=== PATIENT | female | born 1970 | race Caucasian/White ===

== ENCOUNTER 2016-11-19 21:03 | Emergency (ER) | payer MEDICAID ==
[~2016-11-19] VITALS: Ht 150.9 cm; Wt 93.0 kg
[2016-11-19 21:08] VITALS: Ht 150.9 cm; Wt 93.0 kg
--- NOTE | 2016-11-19 21:50 | ERA ---
ER Documentation Chief Complaint Date/Time DATE: 11/19/16 TIME: 21:49 Chief Complaint lt pelvic pain on and off started today,denies dysuria HPI The patient is a 46-year-old female, presenting to the ER because of left pelvic pain intermittently for 1 day, denies similar symptoms previously, denies fever, chills, neck pain, chest pain, dyspnea, abdominal pain, vomiting, dysuria, diarrhea. She does not smoke nor drink. LMP was about 12 years ago Past medical history: None Past surgical history: Cholecystectomy, one ROS All systems reviewed and are negative except as per history of present illness. Medications Home Meds No Active Prescriptions or Reported Meds Allergies Allergies: Coded Allergies: ranitidine (Unverified Adverse Reaction, Unknown, 11/19/16) Physical Exam Vitals Vital Signs Date Time Temp Pulse Resp B/P Pulse Ox O2 Delivery O2 Flow Rate FiO2 11/19/16 23:31 87 17 119/88 99 Room Air 11/19/16 21:08 98.5 90 18 130/63 96 Physical Exam Const: No acute distress. Head: Atraumatic. Eyes: Normal Conjunctiva. ENT: Normal External Ears, Nose and Mouth. Neck: Full range of motion. No meningismus. Resp: Clear to auscultation bilaterally. Cardio: Regular rate and rhythm. Abd: Soft, non distended, normal bowel sounds, non tender. Skin: No petechiae or rashes. Back: No midline or flank tenderness. Ext: No cyanosis, or edema. Neur: Awake and alert. No focal deficit Psych: Normal Mood and Affect. Result Diagram: 11/19/16215411/19/162154 Results 24 hrs Laboratory Tests Test 11/19/16 21:55 White Blood Count 12.910^3/ul Red Blood Count 4.3210^6/ul Hemoglobin 11.6g/dl Hematocrit 35.1% Mean Corpuscular Volume 81.3fl Mean Corpuscular Hemoglobin 26.9pg Mean Corpuscular Hemoglobin Concent 33.0g/dl Red Cell Distribution Width 14.2% Platelet Count 02916^3/UL Mean Platelet Volume 10.4fl Neutrophils % 62.9% Lymphocytes % 30.1% Monocytes % 4.7% Eosinophils % 1.6% Basophils % 0.3% Nucleated Red Blood Cells % 0.0/100WBC Neutrophils # 8.110^3/ul Lymphocytes # 3.910^3/ul Monocytes # 0.610^3/ul Eosinophils # 0.210^3/ul Basophils # 0.010^3/ul Nucleated Red Blood Cells # 0.010^3/ul Prothrombin Time 13.4Sec Prothrombin Time Ratio 1.0 INR International Normalized Ratio 1.02 Activated Partial Thromboplast Time 32.6Sec Urine Color LT. YELLOW Urine Clarity CLEAR Urine pH 5.5 Urine Specific [place] 1.025 Urine Ketones NEGATIVE Urine Nitrite NEGATIVE Urine Bilirubin NEGATIVE Urine Urobilinogen 0.2 E.U./dL Urine Leukocyte Esterase 1+ Urine Microscopic RBC NONE SEEN/HPF Urine Microscopic WBC 5-10/HPF Urine Squamous Epithelial Cells MODERATE Urine Bacteria FEW Urine Hemoglobin NEGATIVE Urine Glucose NEGATIVE% Urine Total Protein NEGATIVE Sodium Level 139mmol/L Potassium Level 4.0mmol/L Chloride Level 106mmol/L Carbon Dioxide Level 23mmol/L Anion Gap 14 Blood Urea Nitrogen 21mg/dl Creatinine 0.58mg/dl Glucose Level 114mg/dl Calcium Level 9.2mg/dl Current Medications Medications (Trade) Dose Ordered Sig/Violeta Route PRN Reason Start Time Stop Time Status Last Admin Dose Admin Morphine Sulfate (morphine) 2 mg ONCE STAT IV 11/19/16 21:56 11/19/16 22:00 DC 11/19/16 22:22 Ondansetron HCl (Zofran Inj) 4 mg ONCE STAT IV 11/19/16 21:56 11/19/16 22:00 DC 11/19/16 22:22 Trimethoprim/ Sulfamethoxazole (Bactrim (Ds)) 1 tab ONCE ONCE PO 11/20/16 01:00 11/20/16 01:01 DC Procedures/[place] [id number] Radiology Main Line: [phone] DIAGNOSTIC IMAGING REPORT Patient: MARTIN OTERO : 1970 Age: 46 Sex: F MR #: [id number] DOS: 11/19/16 2156 Ordering MD: CLIFF YEAGER MD Location: E/R Room/Bed: PROCEDURE: US Non-OB Pelvis. CLINICAL INDICATION: Pelvic pain, postmenopausal for 12 years. TECHNIQUE: Multiple sonographic images of the pelvis were obtained utilizing a transabdominal and endovaginal technique. The images were reviewed on a PACS workstation. COMPARISON: None. FINDINGS: The uterus is retroverted and measures 7.2 x 4.2 x 5.2 cm. The endometrium measures 4 mm in thickness. There are several cystic structures within the endocervical canal. The right ovary measures 4.2 x 2.7 x 1.8 cm. There is a 1.2 cm hemorrhagic right ovarian cyst. The left ovary measures 3.0 x 2.2 x 2.7 cm. There are simple cysts in both ovaries measuring up to 1.6 cm on the left. Blood flow is demonstrated to both ovaries. No adnexal masses are noted. There is no evidence of free fluid. IMPRESSION: 1. Several cystic structures within the endocervical canal, nonspecific. Correlation with Pap smear is recommended. This could be further evaluated with MRI or a sonohysterogram if clinically warranted. 2. 1.2 cm hemorrhagic right ovarian cyst. 3. Additional simple cysts in both ovaries, normal for age. RPTAT: HTAR .Braden aCno MD, MD Date Time Electronically viewed and signed by .Braden Cano MD, MD on 11/20/2016 00:23 .R/ CC: CLIFF YEAGER MD MEDICAL MAKING DECISION: The patient is a 46-year-old female, presenting with acute left pelvic pain of unclear etiology, acute cystitis, acute left hemorrhagic ovarian cyst. She was treated with morphine 2 mg IV for pain, Zofran 4 mg IV for nausea and Bactrim DS for acute cystitis with good response. The differential diagnoses considered include but are not limited to PID, ovarian cyst, endometriosis, fibroids, appendicitis, malignancy. Departure Diagnosis: Primary Impression: Acute pain in female pelvis Additional Impressions: UTI (urinary tract infection) Hemorrhagic ovarian cyst Anemia Condition: Good Comments She was discharged with Bactrim DS, Motrin I discussed the findings with the patient. I advised the patient to follow-up with insurance claim representative in about 1-2 days, sooner if needed and return if any concern. The patient's blood pressure was elevated (>120/80) but appears stable without evidence of hypertension emergency or urgency. The patient was counseled about the risks of hypertension and urged to pursue outpatient monitoring and therapy within a week with their primary care physician. CLIFF YEAGER MD Nov 19, 2016 21:50
[2016-11-19] MEDS ORDERED: morphine 4 MG/ML VIAL IV STA (21:56)
[2016-11-19] MEDS ORDERED: ONDANSETRON 4 MG INJ IV STA (21:56)
[2016-11-19 22:06] LABS: ADD SCAN DIFF NO
[2016-11-19 22:12] LABS: ADD UMIC YES; BASOPHILS % 0.3 % (0.0-2.0); EOSINOPHILS # 0.2 10^3/ul (0.0-0.5); EOSINOPHILS % 1.6 % (0.0-7.0); HEMATOCRIT 35.1 % (37.0-47.0); HEMOGLOBIN 11.6 g/dl (12.0-16.0); LYMPHOCYTES # 3.9 10^3/ul (0.8-2.9); LYMPHOCYTES % 30.1 % (15.0-51.0); MEAN CORPUSCULAR HEMOGLOBIN 26.9 pg (29.0-33.0); MEAN CORPUSCULAR VOLUME 81.3 fl (82.0-101.0); MEAN PLATELET VOLUME 10.4 fl (7.4-10.4); MONOCYTE # 0.6 10^3/ul (0.3-0.9); MONOCYTES % 4.7 % (0.0-11.0); NEUTROPHIL # 8.1 10^3/ul (1.6-7.5); NEUTROPHILS % 62.9 % (39.0-77.0); PLATELET COUNT 294 10^3/UL (140-415); RED BLOOD COUNT 4.32 10^6/ul (4.20-5.40); RED CELL DISTRIBUTION WIDTH 14.2 % (11.5-14.5); UR BILIRUBIN (Dip) NEGATIVE (NEGATIVE); UR BLOOD (Dip) NEGATIVE (NEGATIVE); UR CLARITY CLEAR (CLEAR); UR COLOR LT. YELLOW (YELLOW); UR GLUCOSE (Dip) NEGATIVE (NEGATIVE); UR KETONES (Dip) NEGATIVE (NEGATIVE); UR LEUKOCYTE ESTERASE (Dip) 1+ (NEGATIVE); UR NITRITE (Dip) NEGATIVE (NEGATIVE); UR TOTAL PROTEIN (Dip) NEGATIVE (NEGATIVE); UR UROBILINOGEN (Dip) 0.2 E.U./dL (0.1-1.0); WHITE BLOOD COUNT 12.9 10^3/ul (4.8-10.8)
[2016-11-19 22:27] LABS: INR 1.02; PROTIME 13.4 Sec (12.2-14.2)
[2016-11-19 22:28] LABS: PARTIAL THROMBOPLASTIN TIME 32.6 Sec (25.0-35.0)
[2016-11-19 22:32] LABS: BACTERIA,URINE FEW; CALCIUM 9.2 mg/dl (8.4-10.2); CREATININE 0.58 mg/dl (0.44-1.00); UR SQUAMOUS EPITHELIAL CELL MODERATE; URINE RBCS NONE SEEN /HPF (0)
--- NOTE | 2016-11-20 00:24 | RADRPT ---
PROCEDURE: US Non-OB Pelvis. CLINICAL INDICATION: Pelvic pain, postmenopausal for 12 years. TECHNIQUE: Multiple sonographic images of the pelvis were obtained utilizing a transabdominal and endovaginal technique. The images were reviewed on a PACS workstation. COMPARISON: None. FINDINGS: The uterus is retroverted and measures 7.2 x 4.2 x 5.2 cm. The endometrium measures 4 mm in thicknes s. There are several cystic structures within the endocervical canal. The right ovary measures 4.2 x 2.7 x 1.8 cm. There is a 1.2 cm hemorrhagic right ovarian cyst. The left ovary measures 3.0 x 2.2 x 2.7 cm. There are simple cysts in both ovaries measuring up to 1.6 c m on the left. Blood flow is demonstrated to both ovaries. No adnexal masses are noted. There is no evidence of free fluid. IMPRESSION: 1. Several cystic structures within the endocervical canal, nonspecific. Correlation with Pap smea r is recommended. This could be further evaluated with MRI or a sonohysterogram if clinically warra nted. 2. 1.2 cm hemorrhagic right ovarian cyst. 3. Additional simple cysts in both ovaries, normal for age. RPTAT: HTAR .Braden Cano MD, Date Time Electronically viewed and signed by .Braden Cano MD, on 11/20/2016 00:23 .R/
[2016-11-20] MEDS ORDERED: TRIMETHOPRIM/SULFAMETHOX (DS) TAB PO ONE (01:00)
[2016-11-20] MEDS ORDERED: SULF1TAB31 PO (01:12)
[2016-11-20] MEDS ORDERED: IBUP-1542 PO (01:13)
[2016-11-20 01:17] VITALS: BP 126/84; PULSE 73; RESP 17; TEMP 98.1
== END 2016-11-20 01:17 | disposition home or self-care (01) ==
LOC: E/R 21:03
DX: R10.2 Pelvic and perineal pain (principal); R40.2252 Coma scale, best verbal response, oriented, at arrival to emergency department; N39.0 Urinary tract infection, site not specified; N83.201 Unspecified ovarian cyst, right side; D64.9 Anemia, unspecified; R40.2142 Coma scale, eyes open, spontaneous, at arrival to emergency department; R40.2362 Coma scale, best motor response, obeys commands, at arrival to emergency department
CPT/HCPCS: 36415; 76830; 76856; 80048; 81001; 85025; 85610; 85730; 96374; 96375; J2270; J2405; Z7502; Z7610

== ENCOUNTER 2017-09-06 07:43 | Emergency (ER) | END 2017-09-06 11:25 | disposition home or self-care (01) ==